=== PATIENT | male | born 1995 | race Caucasian/White ===

== ENCOUNTER 2017-02-20 16:19 | Inpatient (IN) | payer MEDICAID ==
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
[2017-02-20 17:55] LABS: BASO # 0.1 K/uL (0.0-0.2); BASO % 1.3 % (0.0-2.0); EOS # 0.2 K/uL (0.0-0.7); EOS % 3.4 % (0.0-4.0); HEMATOCRIT 43.5 % (35.0-51.0); LYMPH # 1.7 K/uL (1.0-4.3); LYMPH % 24.7 % (20.0-40.0); MEAN CELL VOLUME 92.6 fl (80.0-94.0); MEAN CORPUSCULAR HEMOGLOBIN 30.9 pg (27.0-31.0); MEAN CORPUSCULAR HGB CONC 33.3 g/dL (33.0-37.0); MEAN PLATELET VOLUME 8.7 fl (7.2-11.7); MONO # 0.5 K/uL (0.0-0.8); NEUT # 4.5 K/uL (1.8-7.0); NEUT % 63.6 % (50.0-75.0); RED CELL DISTRIBUTION WIDTH 13.3 % (11.5-14.5)
[2017-02-20 18:17] LABS: ALCOHOL SERUM < 10 mg/dl (0-10); BLOOD UREA NITROGEN 10 mg/dl (9-20); CALCIUM 9.6 mg/dL (8.4-10.2); CARBON DIOXIDE 27 mmol/L (22-30); CHLORIDE 102 mmol/L (98-107); GFR AFRICAN-AMERICAN > 60; GLUCOSE,RANDOM 89 mg/dL (75-110); POTASSIUM 4.1 MMOL/L (3.6-5.0); SODIUM 140 mmol/l (132-148)
[2017-02-20 18:42] LABS: RBC URINE 2 /hpf (0-3); URINE BACTERIA RARE (<OCC); URINE BILIRUBIN NEGATIVE (NEGATIVE); URINE BLOOD NEGATIVE (NEGATIVE); URINE COLOR YELLOW (YELLOW); URINE GLUCOSE (UA) NEG (Normal); URINE KETONE NEGATIVE (NEGATIVE); URINE LEUKOCYTE ESTERASE NEG Leu/uL (Negative); URINE PROTEIN NEGATIVE (NEGATIVE); WBC URINE 1 /hpf (0-5)
[2017-02-20] MEDS ORDERED: DiphenhydrAMINE 50 mg/ml Inj IM STA (20:55)
--- NOTE | 2017-02-20 21:52 | CT ---
EXAM: CT Head Without Intravenous Contrast CLINICAL HISTORY: 21 years old, male; Signs and symptoms; Altered mental status/memory loss; Other: Crisis eval; Additional info: Altered. Sent phy. Doc. TECHNIQUE: Axial computed tomography images of the head/brain without intravenous contrast. All CT scans at this facility use one or more dose reduction techniques, viz.: automated exposure control; ma/kV adjustment per patient size (including targeted exams where dose is matched to indication; i.e. head); or iterative reconstruction technique. Coronal and sagittal reformatted images were created and reviewed. COMPARISON: No relevant prior studies available. FINDINGS: Brain: No intracranial hemorrhage. No mass. No definite edema. Ventricles: No hydrocephalus. Bones/joints: No acute fracture. Soft tissues: Unremarkable. Sinuses: Scattered minimal to mild mucosal thickening. Mastoid air cells: No mastoid effusion. Orbits: Unremarkable as visualized. IMPRESSION: 1. No definite acute intracranial abnormality. 2. Incidental/non-acute findings are described above.
[2017-02-21] MEDS ORDERED: Alum-Mag Hydrox-Simethicone Susp (30 mL) PO PRN (05:46)
[2017-02-21] MEDS ORDERED: Magnesium Hydroxide Susp 30 ml UD PO PRN (05:46)
[2017-02-21] MEDS ORDERED: DiphenhydrAMINE 50 mg/ml Inj IM PRN (05:46)
[2017-02-21 08:43] LABS: CHOLESTEROL 137 mg/dL (0-199)
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
[2017-02-21] MEDS: Risperidone M tab 0.5MG PO SCH ×2 (13:45→17:20)
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
--- NOTE | 2017-02-21 15:54 | CARD ---
APPROVED REPORT EKG Measurement Heart [id number] <Conclusion> Normal sinus rhythm Normal ECG
[2017-02-22] MEDS: Risperidone M tab 0.5MG PO SCH ×2 (08:21→17:58)
[2017-02-22 10:29] LABS: CHOLESTEROL 157 mg/dL (0-199)
--- NOTE | 2017-02-22 11:04 | PCM.PYCHPN ---
Psychiatric Progress Note - Psychiatric Progress Note Patient seen today, length of contact: Patient evaluated, case discussed w/ team , chart reviewed Patient Chief Complaint: "Nothing is wrong with me." Problems Identified/Issues Discussed: Patient continues to be paranoid and guarded. He does not think he needs psychiatric medications. He reports that his mood is fine, but he seems irritable at times. Patient is not agreeable to modifying his medications at this time. Medication Change: No Medical Record Reviewed: Yes Consults ordered or reviewed: Medicine consult Mental Status Examination - Cognitive Function Orientation: Person, Place, Situation, Time Memory: Intact Attention: WNL Concentration: WNL Association: [facility] Fund of Knowledge: [facility] Decription of patient's judgement and insights: Poor I/J - Mood Mood: Neutral - Affect Affect: Constricted (Irritable) - Speech Speech: Appropriate - Formal Thought Process Formal Thought Process: Delusions, Paranoia Psychotic Thoughts and Behaviors: +Paranoia - Suicidal Ideation Suicidal Ideation: No - Homicidal Ideation Homicidal Ideation: No Goal/Treatment Plan - Goal/Treatment Plan Need for Continued Stay: Remain at risks for inpatient hospitalization, Discharge may exacerbated symptoms Progress Toward Problem(s) and Goals/Treatment Plan: Cannabis induced psychotic disorder with delusions; Cannabis use disorder; Depression -Patient submitted a 48 hour letter requesting discharge; he will be screened to determine if he meets criteria for involuntary commitment -Continue Lexapro 5 mg PO Daily and Risperdal 0.5 mg PO BID; patient not agreeable to increasing the medications at this time -Psychoeducation re: cannabis abuse -Individual and group therapy
[2017-02-22 19:00] LABS: T4 14.4 ug/dl (5.5-11.0)
[2017-02-22 19:13] LABS: THYROID STIMULATING HORMONE 1.33 mIU/ML (0.46-4.68)
--- NOTE | 2017-02-22 23:33 | PCM.BM ---
Treatment Plan Problems - Problems identified on initial assessmt High Risk Violkence Date Initiated: 02/20/17 Time Initiated: 07:00 Assessment reference: NA Status: Active Ineffective Family Coping COmpromised Date Initiated: 02/20/17 Time Initiated: 07:00 Assessment reference: NA Status: Active Defensive Coping Date Initiated: 02/20/17 Time Initiated: 07:00 Assessment reference: NA Status: Active Treatment assets and liabiliti Patient Assests: ADL independent, physically healthy, good support system Patient Liabilities: substance abuse, other (imapired insight) - Milieu Protocol Maintain good personal hygiene: daily Remind patient to perform daily oral care , daily Assist patient to perform ADL's, every shift Encourage regular showers Conduct patient checks and document Observation sheet: Q15 minutes Maintain personal safety: every shift Educate patient to report safety concerns to staff, every shift Monitor environment for contraband/sharps Medication safety: Monitor for expected outcome, potential side effects: daily, Assess barriers to learning: every shift, Assess readiness for medication education: every shift Milieu Narrative: Cannabis induced psychotic disorder with delusions; Cannabis use disorder; Depression -Patient submitted a 48 hour letter requesting discharge; he will be screened to determine if he meets criteria for involuntary commitment -Continue Lexapro 5 mg PO Daily and Risperdal 0.5 mg PO BID; patient not agreeable to increasing the medications at this time -Psychoeducation re: cannabis abuse -Individual and group therapy Discharge/Continuing Care - Treatment Team Participation Patient/Family/SO Statement: Cannabis induced psychotic disorder with delusions; Cannabis use disorder; Depression -Patient submitted a 48 hour letter requesting discharge; he will be screened to determine if he meets criteria for involuntary commitment -Continue Lexapro 5 mg PO Daily and Risperdal 0.5 mg PO BID; patient not agreeable to increasing the medications at this time -Psychoeducation re: cannabis abuse -Individual and group therapy
--- NOTE | 2017-02-23 08:55 | PCM.PYCHDC ---
Mental Status Examination - Mental Status Examination Orientation: Person, Place, Situation, Time Memory: Intact Mood: Neutral Affect: Broad Speech: Appropriate Attention: WNL Concentration: WNL Association: WNL Fund of Knowledge: WNL Formal Thought Process: No Impairment Description of patient's judgement and insight: Poor I/ Fair J Psychotic Thoughts and Behaviors: +Denies acute paranoia/AH/VH Suicidal Ideation: No Current Homicidal Ideation?: No Discharge Summary - Discharge Note Reason for Hospitalization: As per initial HPI note: pt without previous formal psychiatric diagnosis or treatment , as per family had recent break up with girl friend became increasingly depressed and used increasing amounts of cannabis, pt became paranoid towards family members, disorganized and presenting was labile mood, brought by family to ER for evaluation on the unit patient seen angry irritable, poor insight, presenting with paranoid delusions stating that family is after him and that he is sure that if he leaves the hospital there will be government figures waiting for him outside hired by his family to put him in trouble pt denied suicidal or homicidal ideations, denied command hallucinations urine toxicology positive for cannabis Laboratory Data: Abnormal Lab Results 02/22/17 02/22/17 06:00 08:30 Triglycerides 122 Cholesterol 157 LDL Cholesterol Direct 86 HDL Cholesterol 37 Thyroxine (T4) 14.4 H TSH 3rd Generation 1.33 Consultations:: List each consultation separately and include: 1. Reason for request. 2. Findings. 3. Follow-up Consultations: Medicine consult Summary of Hospital Course include:: 1. Description of specific treatment plan utilized for patients during their course of treatmen. 2. Summarize the time- course for resolution of acute symptoms and/or regressed behaviors. 3. Describe issues identified and worked on during hospitalization. 4. Describe medication utilized. 5. Describe medical problems identified and treated. 6. Reassessment of suicide risk Summary of Hospital Course: Patient was admitted to the hospital and started on Lexapro and Risperdal. Individual and group therapy were provided. Patient submitted a 48 hour letter requesting discharged, was screened by [facility] for involuntary commitment and found not to meet criteria for involuntary commitment. Patient continues to request discharge and will be discharged AMA. Patient was counseled on the dangers of cannabis and other substance abuse. Patient informed to return to the ER or call 911 if he has worsening mental health. He denies acute paranoia/ AH/VH. - Final Diagnosis (DSM 5) Condition upon Discharge: STABLE DSM 5: Cannabis Induced Psychotic Disorder; Cannabis Use Disorder; Depressive Disorder Disposition: AGAINST MEDICAL ADVICE Follow-up Treatment Plan: Cannabis induced psychotic disorder with delusions; Cannabis use disorder; Depression -Patient submitted a 48 hour letter requesting discharge; he was screened by [facility] and not accepted, so he will be discharged to home AMA -Continue Lexapro 5 mg PO Daily and Risperdal 0.5 mg PO BID; patient not agreeable to increasing the medications at this time -Psychoeducation re: cannabis abuse Prescriptions/Medication Reconciliation: Escitalopram [Lexapro] 5 mg PO DAILY #30 tab Risperidone 0.5 mg PO Q12 #60 tablet - Smoking Cessation Smoking Cessation Medication prescribed: No Reason for not providing: Not indicated - Antipsychotic Medications Pt discharged on 2 or more routine antipsychotic medications: No
[2017-02-23] MEDS: Risperidone M tab 0.5MG PO SCH (09:20)
[2017-02-23 10:16] VITALS: BP 149/67; PULSE 108; RESP 20; TEMP 98.4
[2017-02-25 01:45] VITALS: O2SAT 99
== END 2017-02-23 09:45 | disposition left against medical advice (07) | DRG 746 ==
LOC: H.ER 16:19 → H.ERHOLD 02-21 04:35 → H.PSYCH 02-21 06:12
PROVIDERS: ADMIT Psychiatry & Neurology Psychiatry; ATTEND Psychiatry & Neurology Psychiatry
PROC: GZ3ZZZZ Medication Management (ICD-10-PCS; principal; 2017-02-21)
PROC: GZ56ZZZ Individual Psychotherapy, Supportive (ICD-10-PCS; 2017-02-21)
PROC: GZHZZZZ Group Psychotherapy (ICD-10-PCS; 2017-02-21)
DX: F12.150 Cannabis abuse with psychotic disorder with delusions (principal); I95.9 Hypotension, unspecified; F17.210 Nicotine dependence, cigarettes, uncomplicated; F32.9 Major depressive disorder, single episode, unspecified; Z79.899 Other long term (current) drug therapy; Z91.410 Personal history of adult physical and sexual abuse; Z91.411 Personal history of adult psychological abuse

== ENCOUNTER 2017-06-02 14:59 | Emergency (ER) | payer MEDICAID ==
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
[2017-06-02 18:12] LABS: URINE BILIRUBIN NEGATIVE (NEGATIVE); URINE BLOOD SMALL (NEGATIVE); URINE CLARITY SLIGHTY-CLOUDY (Clear); URINE COLOR YELLOW (YELLOW); URINE GLUCOSE (UA) NEG (Normal); URINE LEUKOCYTE ESTERASE NEG Leu/uL (Negative); URINE PROTEIN 100 mg/dL (NEGATIVE); URINE UROBILINOGEN 0.2-1.0 mg/dL (0.2-1.0)
[2017-06-02 18:24] LABS: BARBITURATES, UR NEGATIVE (NEGATIVE); BENZODIAZEPINES, UR NEGATIVE (NEGATIVE); OPIATES, UR NEGATIVE (NEGATIVE); PHENCYCLIDINE, UR NEGATIVE (NEGATIVE)
[2017-06-02 18:34] LABS: ALB/GLOB RATIO 1.4 (1.0-2.1); ALBUMIN 4.7 g/dL (3.5-5.0); ALT/SGPT 31 U/L (21-72); AST/SGOT 21 U/L (17-59); BLOOD UREA NITROGEN 14 mg/dl (9-20); CALCIUM 9.3 mg/dL (8.4-10.2); GFR AFRICAN-AMERICAN > 60; GFR NON-AFRICAN AMERICAN > 60
[2017-06-02 18:36] LABS: ACETAMINOPHEN < 10.0 ug/ml (10.0-30.0); SALICYLATE < 1.0 mg/dl
[2017-06-02 18:53] LABS: BASO # 0.1 K/uL (0.0-0.2); BASO % 0.3 % (0.0-2.0); EOS % 0.2 % (0.0-4.0); HEMOGLOBIN 14.7 g/dL (12.0-18.0); LYMPH # 1.9 K/uL (1.0-4.3); LYMPH % 11.6 % (20.0-40.0); MEAN CELL VOLUME 94.1 fl (80.0-94.0); MEAN CORPUSCULAR HEMOGLOBIN 31.7 pg (27.0-31.0); MEAN CORPUSCULAR HGB CONC 33.7 g/dL (33.0-37.0); MEAN PLATELET VOLUME 8.6 fl (7.2-11.7); MONO # 0.9 K/uL (0.0-0.8); MONO % 5.5 % (0.0-10.0); NEUT # 13.5 K/uL (1.8-7.0); NEUT % 82.4 % (50.0-75.0); RBC 4.65 Mil/uL (4.40-5.90); RED CELL DISTRIBUTION WIDTH 13.3 % (11.5-14.5); WHITE BLOOD COUNT 16.4 K/uL (4.8-10.8)
[2017-06-02 19:26] VITALS: RESP 16
[2017-06-03 02:29] VITALS: BP 123/59; PULSE 67; TEMP 97.6; O2SAT 97
--- NOTE | 2017-06-03 02:44 | ED PDOC ---
- Laboratory Results Result Diagrams: 06/02/17 18:20 06/02/17 18:10 - ECG O2 Sat by Pulse Oximetry: 97 - Progress ED Course And Treament: Case endorsed to scientific technical writer from Shin THOMPSON pending [facility] eval Patient evaluated by [facility] screener; does not meet criteria for commitment at this time. Patient stable for discharge as per Dr. Diaz. Return precautions given. Disposition - Clinical Impression Clinical Impression: Cannabis-induced psychotic disorder - POA Present On Arrival: None - Disposition Disposition: Routine/Home Disposition Time: 02:43 Condition: STABLE Instructions: Marijuana Use and Addiction
--- NOTE | 2017-06-03 08:37 | RAD ---
HISTORY: psych clearance COMPARISON: No prior. FINDINGS: LUNGS: The lungs are well inflated and clear. PLEURA: No significant pleural effusion identified, no pneumothorax apparent. CARDIOVASCULAR: Normal. OSSEOUS STRUCTURES: No significant abnormalities. VISUALIZED UPPER ABDOMEN: Normal. OTHER FINDINGS: None. IMPRESSION: No active pulmonary disease.
--- NOTE | 2017-06-03 11:43 | CARD ---
APPROVED REPORT EKG Measurement Heart [id number] <Conclusion> Normal sinus rhythm Normal ECG
== END 2017-06-03 03:31 | disposition home or self-care (01) ==
LOC: H.ER 14:59
DX: F12.959 Cannabis use, unspecified with psychotic disorder, unspecified (principal); F32.9 Major depressive disorder, single episode, unspecified; F20.9 Schizophrenia, unspecified; F41.9 Anxiety disorder, unspecified
CPT/HCPCS: 71045; 80053; 80320; 80324; 80329; 80345; 80346; 80349; 80353; 80358; 80361; 81003; 83992; 85025; 93005; 96372; 99284; J1630; J2060